=== PATIENT | male | born 1980 | race Caucasian/White ===

== ENCOUNTER 2020-07-08 13:26 | Inpatient (IN) | payer MEDICAID ==
[~2020-07-08] VITALS: Ht 167.6 cm; Wt 80.3 kg
[2020-07-08] MEDS ORDERED: QUET200T PO (13:39)
[2020-07-08] MEDS ORDERED: BACL10TA PO (13:39)
[2020-07-08] MEDS ORDERED: MELO-107 PO (13:39)
[2020-07-08] MEDS ORDERED: GABA-1181 PO (13:39)
[2020-07-08] MEDS ORDERED: DOXE10 PO (13:39)
[2020-07-08] MEDS ORDERED: ONDANSETRON HCL 4 MG TABLET PO ONE (15:00)
[2020-07-08 15:31] LABS: BASOPHILS % (AUTO) 0.3 % (0.0-2.0); EOSINOPHILS % (AUTO) 0.8 % (1.0-6.0); HEMATOCRIT 43.6 % (41-53); HEMOGLOBIN 14.9 g/dL (13.5-17.5); LYMPHOCYTES # (AUTO) 1.1 K/uL (1.0-4.8); LYMPHOCYTES % (AUTO) 15.6 % (22.0-44.0); MEAN CORPUSCULAR HEMOGLOBIN 32.3 pg (26.0-34.0); MEAN CORPUSCULAR HGB CONC 34.1 G/dL (31.0-37.0); MEAN CORPUSCULAR VOLUME 95 fL (80-100); MONOCYTES # (AUTO) 0.7 K/uL (0.1-1.0); MONOCYTES % (AUTO) 9.8 % (2.0-9.0); NEUTROPHILS % (AUTO) 73.5 % (40.0-70.0); PLATELET COUNT (AUTO) 239 K/uL (150-450); RED BLOOD CELL COUNT(AUTO) 4.61 MIL/uL (4.50-5.90); RED CELL DISTRIBUTION WIDTH 13.2 % (11.5-14.5)
[2020-07-08 15:44] LABS: ANION GAP 9 mmol/L (8-16); CALCIUM, TOTAL 9.6 mg/dL (8.8-10.5); CARBON DIOXIDE 26 mmol/L (22-29); CHLORIDE 103 mmol/L (98-107); CREATININE 1.11 mg/dL (0.60-1.30); GLOMERULAR FILTR. RATE CALC > 60 mL/min (>60); GLUCOSE,RANDOM 105 mg/dL (70-110); POTASSIUM 4.6 mmol/L (3.5-5.1); SODIUM SERUM 138 mmol/L (136-145); UREA NITROGEN, BLOOD 25 mg/dL (7-18)
[2020-07-08 15:53] LABS: ALANINE AMINOTRANSFERASE 80 U/L (12-78); ALBUMIN 4.3 g/dL (3.4-5.0); ALKALINE PHOSPHATASE 83 U/L (46-116); ASPARTATE AMINOTRANSFERASE 32 U/L (15-37); BILIRUBIN,TOTAL 0.3 mg/dL (0.1-1.0); LIPASE 146 U/L (73-393); TOTAL PROTEIN, SERUM 8.4 g/dL (6.4-8.2)
[2020-07-08 16:18] LABS: COVID AG,FIA SOURCE NASOPHARYNGEAL
[2020-07-08] MEDS ORDERED: HALOPERIDOL 5 MG TABLET PO PRN (17:15)
[2020-07-08] MEDS ORDERED: ZOLPIDEM TARTRATE 10 MG TABLET PO PRN (17:15)
[2020-07-08] MEDS ORDERED: LORazepam 2 MG TABLET PO PRN (17:15)
[2020-07-08 17:51] LABS: AMPHET/METH SCREEN,URINE NEGATIVE (NEGATIVE); BARBITURATE SCREEN, URINE NEGATIVE (NEGATIVE); BENZODIAZEPINES SCREEN,URINE NEGATIVE (NEGATIVE); CANNABINOID SCREEN,URINE NEGATIVE (NEGATIVE); COCAINE SCREEN,URINE NEGATIVE (NEGATIVE); METHADONE SCREEN, URINE NEGATIVE (NEGATIVE); OPIATE SCREEN,URINE POSITIVE (NEGATIVE)
[2020-07-08 18:00] LABS: APPEARANCE,URINE CLEAR (CLEAR); BILIRUBIN,URINE NEGATIVE (NEGATIVE); GLUCOSE, URINE (UA) NEGATIVE (NEGATIVE); KETONES,URINE NEGATIVE (NEGATIVE); LEUKOCYTE ESTERASE ,URINE NEGATIVE (NEGATIVE); NITRATE,URINE NEGATIVE (NEGATIVE); OCCULT BLOOD,URINE NEGATIVE (NEGATIVE); PROTEIN,URINE NEGATIVE (NEGATIVE); UROBILINOGEN,URINE 0.2 mg/dL (<=1.0)
[2020-07-08 18:01] LABS: PHENCYCLIDINE SCREEN,URINE NEGATIVE (NEGATIVE)
[2020-07-08] MEDS ORDERED: LOPERAMIDE HCL 2 MG CAPSULE PO PRN (22:15)
[2020-07-08] MEDS ORDERED: CloNIDine HCL 0.1 MG TABLET PO PRN (22:15)
[2020-07-08] MEDS ORDERED: ONDANSETRON HCL 4 MG TABLET PO PRN (22:15)
[2020-07-08] MEDS ORDERED: MAGNESIUM HYDROXIDE SUSPENSION 30 ML UDCUP PO PRN (22:15)
[2020-07-08] MEDS ORDERED: ALBUTEROL SULFATE HFA 90 MCG/PUFF 8 GM INHALER IH PRN (22:15)
[2020-07-08] MEDS ORDERED: BACITRACIN 28 GM OINTMENT TP PRN (22:15)
[2020-07-08] MEDS ORDERED: BENZOCAINE/MENTHOL LOZENGE PO PRN (22:15)
[2020-07-08] MEDS ORDERED: MAG HYDROX/AL HYDROX/SIMETH ES 30 ML SUSPENSION UDCUP PO PRN (22:15)
[2020-07-08] MEDS ORDERED: OMEPRAZOLE 20 MG CAPSULE PO PRN (22:15)
[2020-07-08] MEDS ORDERED: PETROLATUM,WHITE 28 GM JELLY TP PRN (22:15)
[2020-07-09 01:37] VITALS: BP 126/83
[2020-07-09 08:13] VITALS: BP 127/60
[2020-07-09 08:25] LABS: FREE T4 (FREE THYROXINE) 0.82 ng/dL (0.76-1.46); THYROID STIMULATING HORMONE 0.82 uIU/mL (0.36-3.74)
[2020-07-09] MEDS: QUEtiapine FUMARATE 200 MG TABLET PO SCH (12:52)
[2020-07-09] MEDS: GABAPENTIN 300 MG CAPSULE PO SCH (20:46)
[2020-07-09 21:22] VITALS: BP 118/70
[2020-07-10] VITALS (7 sets, daily range): BP systolic 108–144; BP diastolic 72–90
[2020-07-10] MEDS: TraMADol HCL 50 MG TABLET PO PRN ×4 (00:12→19:09)
[2020-07-10] MEDS: IBUPROFEN 600 MG TABLET PO PRN ×2 (04:54→15:36)
[2020-07-10] MEDS: QUEtiapine FUMARATE 200 MG TABLET PO SCH (08:38)
[2020-07-10] MEDS: GABAPENTIN 300 MG CAPSULE PO SCH ×2 (08:38→16:13)
[2020-07-11 01:27] VITALS: BP 105/67
[2020-07-11] MEDS: TraMADol HCL 50 MG TABLET PO PRN ×3 (02:19→16:16)
[2020-07-11] MEDS: IBUPROFEN 600 MG TABLET PO PRN ×2 (04:14→13:37)
[2020-07-11] MEDS: GABAPENTIN 300 MG CAPSULE PO SCH ×2 (08:07→16:16)
[2020-07-11] MEDS: QUEtiapine FUMARATE 200 MG TABLET PO SCH (08:07)
[2020-07-11 08:41] VITALS: BP 130/71
[2020-07-11 16:20] VITALS: BP 106/60
[2020-07-12 00:10] VITALS: BP 133/86
[2020-07-12] MEDS: TraMADol HCL 50 MG TABLET PO PRN ×4 (00:11→21:52)
[2020-07-12 08:39] VITALS: BP 120/53
[2020-07-12] MEDS: GABAPENTIN 300 MG CAPSULE PO SCH ×2 (08:46→16:06)
[2020-07-12] MEDS: QUEtiapine FUMARATE 200 MG TABLET PO SCH (08:46)
[2020-07-12 16:25] VITALS: BP 115/88
[2020-07-12] MEDS: IBUPROFEN 600 MG TABLET PO PRN (21:52)
[2020-07-13 00:50] VITALS: BP 131/85
[2020-07-13] MEDS: ACETAMINOPHEN 325 MG TABLET PO PRN (00:56)
[2020-07-13] MEDS: TraMADol HCL 50 MG TABLET PO PRN ×4 (03:58→23:20)
[2020-07-13] MEDS: IBUPROFEN 600 MG TABLET PO PRN ×2 (04:00→13:32)
[2020-07-13 04:02] VITALS: BP 125/87
[2020-07-13 08:40] VITALS: BP 124/67
[2020-07-13] MEDS: GABAPENTIN 300 MG CAPSULE PO SCH ×2 (08:43→16:37)
[2020-07-13] MEDS: QUEtiapine FUMARATE 200 MG TABLET PO SCH (08:43)
[2020-07-13 10:54] VITALS: BP 118/72
[2020-07-13 16:18] VITALS: BP 119/70
[2020-07-14] VITALS (7 sets, daily range): BP systolic 102–140; BP diastolic 60–93
[2020-07-14] MEDS: TraMADol HCL 50 MG TABLET PO PRN ×3 (05:28→19:19)
[2020-07-14] MEDS: GABAPENTIN 300 MG CAPSULE PO SCH ×2 (08:21→16:47)
[2020-07-14] MEDS: QUEtiapine FUMARATE 200 MG TABLET PO SCH (08:21)
[2020-07-14] MEDS: ACETAMINOPHEN 325 MG TABLET PO PRN ×2 (09:23→18:31)
[2020-07-15 01:07] VITALS: BP 120/62
[2020-07-15] MEDS: TraMADol HCL 50 MG TABLET PO PRN ×4 (01:42→21:00)
[2020-07-15 05:53] VITALS: BP 123/65
[2020-07-15] MEDS: IBUPROFEN 600 MG TABLET PO PRN (05:53)
[2020-07-15 05:54] VITALS: BP 124/72
[2020-07-15 08:28] VITALS: BP 132/80
[2020-07-15] MEDS: GABAPENTIN 300 MG CAPSULE PO SCH ×2 (08:29→17:08)
[2020-07-15] MEDS: QUEtiapine FUMARATE 200 MG TABLET PO SCH (08:29)
[2020-07-15 14:50] VITALS: BP 124/76
[2020-07-15 16:12] VITALS: BP 111/75
[2020-07-15] MEDS: SIMVASTATIN 10 MG TABLET PO SCH (20:15)
[2020-07-16 00:24] VITALS: BP 125/73
[2020-07-16] MEDS: ACETAMINOPHEN 325 MG TABLET PO PRN ×3 (00:27→22:36)
[2020-07-16 02:56] VITALS: BP 147/94
[2020-07-16] MEDS: TraMADol HCL 50 MG TABLET PO PRN ×3 (03:00→18:24)
[2020-07-16 03:52] VITALS: BP 126/63
[2020-07-16] MEDS: IBUPROFEN 600 MG TABLET PO PRN (03:56)
[2020-07-16] MEDS: QUEtiapine FUMARATE 200 MG TABLET PO SCH (08:14)
[2020-07-16] MEDS: GABAPENTIN 300 MG CAPSULE PO SCH ×2 (08:14→16:51)
[2020-07-16 08:36] VITALS: BP 121/73
[2020-07-16 11:21] VITALS: BP 118/74
[2020-07-16 16:29] VITALS: BP 101/60
[2020-07-16] MEDS: SIMVASTATIN 10 MG TABLET PO SCH (20:06)
[2020-07-17 01:30] VITALS: BP 112/67
[2020-07-17] MEDS: TraMADol HCL 50 MG TABLET PO PRN ×3 (01:30→17:01)
[2020-07-17] MEDS: ACETAMINOPHEN 325 MG TABLET PO PRN (05:35)
[2020-07-17] MEDS: GABAPENTIN 300 MG CAPSULE PO SCH ×2 (08:07→17:00)
[2020-07-17] MEDS: QUEtiapine FUMARATE 200 MG TABLET PO SCH ×2 (08:11→20:17)
[2020-07-17 08:34] VITALS: BP 137/83
[2020-07-17 08:44] VITALS: BP 137/83
[2020-07-17 08:50] LABS: COVID AG,FIA SOURCE NASOPHARYNGEAL
[2020-07-17] MEDS: IBUPROFEN 600 MG TABLET PO PRN (12:18)
[2020-07-17 16:27] VITALS: BP 132/78
[2020-07-17] MEDS: SIMVASTATIN 10 MG TABLET PO SCH (20:17)
[2020-07-18 02:01] VITALS: BP 107/84
[2020-07-18] MEDS: TraMADol HCL 50 MG TABLET PO PRN ×3 (02:07→16:05)
[2020-07-18 04:28] VITALS: BP 110/82
[2020-07-18] MEDS: IBUPROFEN 600 MG TABLET PO PRN ×2 (04:35→14:13)
[2020-07-18] MEDS: GABAPENTIN 300 MG CAPSULE PO SCH ×2 (08:05→16:04)
[2020-07-18 08:20] VITALS: BP 130/66
[2020-07-18] MEDS: DOCUSATE SODIUM 100 MG CAPSULE PO PRN (08:20)
[2020-07-18 08:40] VITALS: BP 130/66
[2020-07-18 16:09] VITALS: BP 134/81
[2020-07-18] MEDS: SIMVASTATIN 10 MG TABLET PO SCH (20:10)
[2020-07-18] MEDS: QUEtiapine FUMARATE 200 MG TABLET PO SCH (20:10)
[2020-07-19 01:14] VITALS: BP 107/69
[2020-07-19] MEDS: TraMADol HCL 50 MG TABLET PO PRN ×3 (02:00→16:11)
[2020-07-19 04:13] VITALS: BP 116/71
[2020-07-19] MEDS: IBUPROFEN 600 MG TABLET PO PRN ×2 (04:17→14:44)
[2020-07-19 08:41] VITALS: BP 114/78
[2020-07-19] MEDS: GABAPENTIN 300 MG CAPSULE PO SCH ×2 (08:54→16:11)
[2020-07-19] MEDS: DOCUSATE SODIUM 100 MG CAPSULE PO PRN (14:43)
[2020-07-19 16:27] VITALS: BP 118/75
[2020-07-19] MEDS: ACETAMINOPHEN 325 MG TABLET PO PRN (19:01)
[2020-07-19] MEDS: SIMVASTATIN 10 MG TABLET PO SCH (20:16)
[2020-07-19] MEDS: QUEtiapine FUMARATE 200 MG TABLET PO SCH (20:16)
[2020-07-20 00:13] VITALS: BP 136/84
[2020-07-20] MEDS: TraMADol HCL 50 MG TABLET PO PRN ×2 (00:18→06:40)
[2020-07-20 03:22] VITALS: BP 123/83
[2020-07-20] MEDS: IBUPROFEN 600 MG TABLET PO PRN (03:27)
[2020-07-20 06:35] VITALS: BP 131/86
[2020-07-20 08:09] LABS: BASOPHILS % (AUTO) 0.7 % (0.0-2.0); EOSINOPHILS % (AUTO) 5.6 % (1.0-6.0); HEMATOCRIT 44.4 % (41-53); HEMOGLOBIN 15.4 g/dL (13.5-17.5); LYMPHOCYTES # (AUTO) 1.7 K/uL (1.0-4.8); LYMPHOCYTES % (AUTO) 28.7 % (22.0-44.0); MEAN CORPUSCULAR HEMOGLOBIN 32.7 pg (26.0-34.0); MEAN CORPUSCULAR HGB CONC 34.8 G/dL (31.0-37.0); MEAN CORPUSCULAR VOLUME 94 fL (80-100); MONOCYTES # (AUTO) 0.9 K/uL (0.1-1.0); MONOCYTES % (AUTO) 14.5 % (2.0-9.0); NEUTROPHILS % (AUTO) 50.5 % (40.0-70.0); PLATELET COUNT (AUTO) 238 K/uL (150-450); RED BLOOD CELL COUNT(AUTO) 4.72 MIL/uL (4.50-5.90); RED CELL DISTRIBUTION WIDTH 12.8 % (11.5-14.5)
[2020-07-20] MEDS ORDERED: QUET200T PO (08:53)
[2020-07-20] MEDS ORDERED: SIMV-259 PO (08:53)
[2020-07-20] MEDS ORDERED: GABA-1181 PO (08:53)
[2020-07-20 08:58] VITALS: BP 135/74
== END 2020-07-20 13:00 | disposition home or self-care (01) | DRG 750 ==
LOC: EMS 13:30 → B2S 17:25
PROVIDERS: ADMIT Psychiatry & Neurology Psychiatry; ATTEND Psychiatry & Neurology Psychiatry
DX: F25.1 Schizoaffective disorder, depressive type (principal); E78.5 Hyperlipidemia, unspecified; K62.5 Hemorrhage of anus and rectum; F41.9 Anxiety disorder, unspecified; K59.00 Constipation, unspecified; F17.210 Nicotine dependence, cigarettes, uncomplicated; R74.8 Abnormal levels of other serum enzymes; F19.10 Other psychoactive substance abuse, uncomplicated; G47.00 Insomnia, unspecified; G89.3 Neoplasm related pain (acute) (chronic); E78.00 Pure hypercholesterolemia, unspecified; K64.8 Other hemorrhoids; R45.851 Suicidal ideations; Z20.828 Contact with and (suspected) exposure to other viral communicable diseases; Z59.0 Homelessness; Z79.899 Other long term (current) drug therapy; Z85.038 Personal history of other malignant neoplasm of large intestine; Z88.0 Allergy status to penicillin; Z71.6 Tobacco abuse counseling; Z71.51 Drug abuse counseling and surveillance of drug abuser
CPT/HCPCS: 84439; 84443; 87081; 87426; G0480; Q0162

== ENCOUNTER 2020-07-09 14:13 | Emergency (ER) | payer MEDICAID ==
[~2020-07-09] VITALS: Ht 170.2 cm; Wt 81.4 kg
[~2020-07-09 14:13] MED LIST: BACL10TA PO; DOXE10 PO; GABA-1181 PO; MELO-107 PO; QUET200T PO
[2020-07-09 15:42] LABS: BASOPHILS % (AUTO) 0.3 % (0.0-2.0); EOSINOPHILS % (AUTO) 1.8 % (1.0-6.0); HEMATOCRIT 41.3 % (41-53); HEMOGLOBIN 14.4 g/dL (13.5-17.5); LYMPHOCYTES # (AUTO) 1.2 K/uL (1.0-4.8); LYMPHOCYTES % (AUTO) 19.6 % (22.0-44.0); MEAN CORPUSCULAR HEMOGLOBIN 32.7 pg (26.0-34.0); MEAN CORPUSCULAR HGB CONC 34.9 G/dL (31.0-37.0); MEAN CORPUSCULAR VOLUME 94 fL (80-100); MONOCYTES # (AUTO) 0.6 K/uL (0.1-1.0); MONOCYTES % (AUTO) 10.9 % (2.0-9.0); NEUTROPHILS % (AUTO) 67.4 % (40.0-70.0); PLATELET COUNT (AUTO) 237 K/uL (150-450); RED BLOOD CELL COUNT(AUTO) 4.41 MIL/uL (4.50-5.90); RED CELL DISTRIBUTION WIDTH 12.9 % (11.5-14.5)
[2020-07-09] MEDS ORDERED: GABAPENTIN 100 MG CAPSULE PO ONE (15:45)
[2020-07-09] MEDS ORDERED: ACETAMINOPHEN 500 MG TABLET PO ONE (15:45)
[2020-07-09] MEDS ORDERED: BARIUM SULFATE 0.1% SUSPENSION 450 ML BOTTLE PO ONE (15:45)
[2020-07-09] MEDS ORDERED: IOVERSOL 320 MG/ML 100 ML VIAL ONE (16:03)
[2020-07-09] MEDS ORDERED: SODIUM CHLORIDE 0.9% 100 ML ONE (16:03)
[2020-07-09 16:23] LABS: ANION GAP 9 mmol/L (8-16); CALCIUM, TOTAL 9.2 mg/dL (8.8-10.5); CARBON DIOXIDE 26 mmol/L (22-29); CHLORIDE 105 mmol/L (98-107); CREATININE 1.16 mg/dL (0.60-1.30); GLOMERULAR FILTR. RATE CALC > 60 mL/min (>60); GLUCOSE,RANDOM 100 mg/dL (70-110); POTASSIUM 4.3 mmol/L (3.5-5.1); SODIUM SERUM 140 mmol/L (136-145); UREA NITROGEN, BLOOD 25 mg/dL (7-18)
[2020-07-09 20:08] VITALS: BP 110/70
== END 2020-07-09 20:22 | disposition home or self-care (01) ==
LOC: EMS 14:13
DX: K64.4 Residual hemorrhoidal skin tags (principal); R45.851 Suicidal ideations; F25.0 Schizoaffective disorder, bipolar type; Z85.038 Personal history of other malignant neoplasm of large intestine; Z88.0 Allergy status to penicillin; Z79.899 Other long term (current) drug therapy
CPT/HCPCS: 36415; 74177; 80048; 85025; 99285; J7050; Q9967

== ENCOUNTER 2022-08-25 15:50 | Inpatient (IN) | payer MEDICAID ==
[~2022-08-25] VITALS: Ht 335.3 cm; Wt 86.0 kg
[~2022-08-25 15:50] MED LIST changes: -BACL10TA PO; -DOXE10 PO; -MELO-107 PO; +SIMV-259 PO
[2022-08-25 16:25] LABS: BASOPHILS % (AUTO) 0.7 % (0.0-2.0); EOSINOPHILS % (AUTO) 0.9 % (1.0-6.0); HEMATOCRIT 45.2 % (41-53); HEMOGLOBIN 15.5 g/dL (13.5-17.5); LYMPHOCYTES # (AUTO) 1.8 K/uL (1.0-4.8); LYMPHOCYTES % (AUTO) 20.5 % (22.0-44.0); MEAN CORPUSCULAR HEMOGLOBIN 30.6 pg (26.0-34.0); MEAN CORPUSCULAR HGB CONC 34.2 G/dL (31.0-37.0); MEAN CORPUSCULAR VOLUME 90 fL (80-100); MONOCYTES # (AUTO) 0.8 K/uL (0.1-1.0); NEUTROPHILS # (AUTO) 6.1 K/uL (1.8-7.7); NEUTROPHILS % (AUTO) 68.9 % (40.0-70.0); PLATELET COUNT (AUTO) 267 K/uL (150-450); RED BLOOD CELL COUNT(AUTO) 5.04 MIL/uL (4.50-5.90); RED CELL DISTRIBUTION WIDTH 13.1 % (11.5-14.5)
[2022-08-25 16:39] LABS: ANION GAP 11 mmol/L (8-16); CALCIUM, TOTAL 9.1 mg/dL (8.8-10.5); CARBON DIOXIDE 25 mmol/L (22-29); CHLORIDE 105 mmol/L (98-107); CREATININE 1.14 mg/dL (0.60-1.30); GLUCOSE,RANDOM 90 mg/dL (70-110); SODIUM SERUM 141 mmol/L (136-145); UREA NITROGEN, BLOOD 12 mg/dL (7-18)
[2022-08-25 16:40] LABS: GLOMERULAR FILTR. RATE CALC > 60 mL/min (>60)
[2022-08-25 16:45] LABS: ALANINE AMINOTRANSFERASE 68 U/L (12-78); ALBUMIN 3.9 g/dL (3.4-5.0); ALKALINE PHOSPHATASE 113 U/L (46-116); ASPARTATE AMINOTRANSFERASE 23 U/L (15-37); BILIRUBIN,TOTAL 0.5 mg/dL (0.1-1.0); TOTAL PROTEIN, SERUM 7.5 g/dL (6.4-8.2)
[2022-08-25 19:17] LABS: AMPHET/METH SCREEN,URINE NEGATIVE (NEGATIVE); BARBITURATE SCREEN, URINE NEGATIVE (NEGATIVE); BENZODIAZEPINES SCREEN,URINE NEGATIVE (NEGATIVE); CANNABINOID SCREEN,URINE NEGATIVE (NEGATIVE); COCAINE SCREEN,URINE NEGATIVE (NEGATIVE); METHADONE SCREEN, URINE NEGATIVE (NEGATIVE); OPIATE SCREEN,URINE NEGATIVE (NEGATIVE)
[2022-08-25 19:19] LABS: PHENCYCLIDINE SCREEN,URINE NEGATIVE (NEGATIVE)
[2022-08-25] MEDS ORDERED: DiphenhydrAMINE HCL 50 MG CAPSULE PO ONE (21:15)
[2022-08-25] MEDS ORDERED: LORazepam 2 MG TABLET PO ONE (21:15)
[2022-08-25] MEDS ORDERED: DiphenhydrAMINE HCL 25 MG CAPSULE PO ONE (21:15)
[2022-08-25] MEDS ORDERED: HALOPERIDOL 5 MG TABLET PO ONE (21:15)
[2022-08-25] MEDS ORDERED: ACETAMINOPHEN 500 MG TABLET PO ONE (23:00)
[2022-08-26] MEDS ORDERED: ZOLPIDEM TARTRATE 10 MG TABLET PO PRN (02:00)
[2022-08-26 08:57] LABS: COVID AG,FIA SOURCE NASOPHARYNGEAL
[2022-08-26] MEDS ORDERED: LOPERAMIDE HCL 2 MG CAPSULE PO PRN (09:00)
[2022-08-26] MEDS ORDERED: CloNIDine HCL 0.1 MG TABLET PO PRN (09:00)
[2022-08-26] MEDS ORDERED: DOCUSATE SODIUM 100 MG CAPSULE PO PRN (09:00)
[2022-08-26] MEDS ORDERED: MAGNESIUM HYDROXIDE SUSPENSION 30 ML UDCUP PO PRN (09:00)
[2022-08-26] MEDS ORDERED: MAG HYDROX/AL HYDROX/SIMETH ES 30 ML SUSPENSION UDCUP PO PRN (09:00)
[2022-08-26] MEDS ORDERED: NICOTINE 14 MG/24 HOUR PATCH TD PRN (09:00)
[2022-08-26] MEDS ORDERED: PETROLATUM,WHITE 28 GM JELLY TP PRN (09:00)
[2022-08-26] MEDS ORDERED: ONDANSETRON HCL 4 MG TABLET PO PRN (09:00)
[2022-08-26] MEDS ORDERED: ALBUTEROL SULFATE HFA 90 MCG/PUFF 8 GM INHALER IH PRN (09:00)
[2022-08-26] MEDS ORDERED: GuaiFENesin/D-METHORPHAN [SUGAR-FREE] 200-20MG/10 ML SYRUP UDCUP PO PRN (09:00)
[2022-08-26 10:25] VITALS: BP 142/98
[2022-08-26] MEDS: ACETAMINOPHEN 325 MG TABLET PO PRN (11:03)
[2022-08-26 11:22] LABS: APPEARANCE,URINE CLEAR (CLEAR); BILIRUBIN,URINE NEGATIVE (NEGATIVE); GLUCOSE, URINE (UA) NEGATIVE (NEGATIVE); KETONES,URINE NEGATIVE (NEGATIVE); LEUKOCYTE ESTERASE ,URINE NEGATIVE (NEGATIVE); NITRATE,URINE NEGATIVE (NEGATIVE); OCCULT BLOOD,URINE NEGATIVE (NEGATIVE); PROTEIN,URINE NEGATIVE (NEGATIVE); SPECIFIC GRAVITIY, URINE 1.009 (1.003-1.030); UROBILINOGEN,URINE <=1.0 mg/dL (<=1.0)
[2022-08-26 11:35] LABS: AMPHET/METH SCREEN,URINE NEGATIVE (NEGATIVE); BARBITURATE SCREEN, URINE NEGATIVE (NEGATIVE); BENZODIAZEPINES SCREEN,URINE NEGATIVE (NEGATIVE); CANNABINOID SCREEN,URINE NEGATIVE (NEGATIVE); COCAINE SCREEN,URINE NEGATIVE (NEGATIVE); METHADONE SCREEN, URINE NEGATIVE (NEGATIVE); OPIATE SCREEN,URINE NEGATIVE (NEGATIVE); PHENCYCLIDINE SCREEN,URINE NEGATIVE (NEGATIVE)
[2022-08-26] MEDS: HYDROCORTISONE 2.5% 30 GM CREAM TP PRN (15:24)
[2022-08-26 16:07] VITALS: BP 135/85
[2022-08-26] MEDS: GABAPENTIN 300 MG CAPSULE PO SCH (16:08)
[2022-08-26] MEDS: OLANZapine 10 MG TABLET PO SCH (21:15)
[2022-08-26] MEDS: SIMVASTATIN 10 MG TABLET PO SCH (21:17)
[2022-08-26] MEDS: LORazepam 2 MG TABLET PO PRN (21:17)
[2022-08-26] MEDS: HALOPERIDOL 5 MG TABLET PO PRN (21:17)
[2022-08-27] MEDS: HALOPERIDOL 5 MG TABLET PO PRN (04:14)
[2022-08-27 04:15] VITALS: BP 106/63
[2022-08-27] MEDS: ACETAMINOPHEN 325 MG TABLET PO PRN ×2 (04:15→13:09)
[2022-08-27] MEDS: LORazepam 2 MG TABLET PO PRN ×2 (04:15→13:20)
[2022-08-27] MEDS: GABAPENTIN 300 MG CAPSULE PO SCH ×2 (08:14→16:15)
[2022-08-27] MEDS: HYDROCORTISONE 2.5% 30 GM CREAM TP PRN (08:14)
[2022-08-27 09:01] VITALS: BP 142/91
[2022-08-27 13:06] VITALS: BP 136/72
[2022-08-27 14:37] VITALS: BP 133/90
[2022-08-27] MEDS: TraMADol HCL 50 MG TABLET PO PRN ×2 (14:50→21:31)
[2022-08-27 16:09] VITALS: BP 134/89
[2022-08-27] MEDS: SIMVASTATIN 10 MG TABLET PO SCH (20:35)
[2022-08-27] MEDS: OLANZapine 10 MG TABLET PO SCH (20:35)
[2022-08-27 21:28] VITALS: BP 128/84
[2022-08-28 02:18] VITALS: BP 130/81
[2022-08-28] MEDS: ACETAMINOPHEN 325 MG TABLET PO PRN (02:21)
[2022-08-28 05:35] VITALS: BP 127/80
[2022-08-28] MEDS: TraMADol HCL 50 MG TABLET PO PRN ×2 (05:38→12:07)
[2022-08-28 08:30] VITALS: BP 155/77
[2022-08-28] MEDS: HYDROCORTISONE 2.5% 30 GM CREAM TP PRN (08:47)
[2022-08-28] MEDS: GABAPENTIN 300 MG CAPSULE PO SCH (08:47)
[2022-08-28 12:08] VITALS: BP 165/102
[2022-08-28] MEDS ORDERED: OLAN10 PO (13:49)
[2022-08-28] MEDS ORDERED: GABA-1181 PO (13:49)
[2022-08-28] MEDS ORDERED: SIMV10TA97 PO (13:49)
== END 2022-08-28 15:20 | disposition home or self-care (01) | DRG 750 ==
LOC: EMS 16:07 → 3EI 08-26 05:56
PROVIDERS: ADMIT Psychiatry & Neurology Psychiatry; ATTEND Psychiatry & Neurology Psychiatry
DX: F25.0 Schizoaffective disorder, bipolar type (principal); R45.851 Suicidal ideations; F43.10 Post-traumatic stress disorder, unspecified; L30.9 Dermatitis, unspecified; E78.5 Hyperlipidemia, unspecified; G47.00 Insomnia, unspecified; Z20.822 Contact with and (suspected) exposure to COVID-19; Z79.899 Other long term (current) drug therapy; Z88.0 Allergy status to penicillin; Z88.8 Allergy status to other drugs, medicaments and biological substances; Z85.038 Personal history of other malignant neoplasm of large intestine; Z59.00 Homelessness unspecified
CPT/HCPCS: 80053; 80307; 81003; 85025; 99285; G0480